=== PATIENT | male | born 1980 | race Caucasian/White ===

== ENCOUNTER 2020-11-18 17:44 | Emergency (ER) | payer BC ==
[~2020-11-18] VITALS: Ht 177.8 cm; Wt 85.0 kg
[2020-11-18] MEDS ORDERED: DOXYCYCLINE HY100 MG PO (22:44)
== END 2020-11-18 23:05 | disposition home or self-care (01) ==
LOC: ED 17:44
DX: L03.115 Cellulitis of right lower limb (principal); R00.0 Tachycardia, unspecified
CPT/HCPCS: 73630; 80053; 83605; 85025; 93971; 99284-25

== ENCOUNTER 2021-07-16 09:07 | Day surgery (SDC) | payer BC ==
[~2021-07-16] VITALS: Ht 177.8 cm; Wt 64.4 kg
[~2021-07-16 09:07] MED LIST: DOXYCYCLINE HY100 MG PO; LEVEMIR FL100 UNIT/2 SQ; METFORMIN HCL750 MG PO; ZOLOFT50 MG PO
--- NOTE | 2021-07-16 10:15 | NUR ---
0931 BLOOD GLUCOSE 111. NOT IN EMAR.
--- NOTE | 2021-07-16 11:14 | NUR ---
07/16/21 1114 Cintia Sanchez 1108-PATIENT ARRIVED TO PACU ON 3L NC PLACED ON 2L RR EVEN. PATIENT LAYING LEFT LATERAL REACTIVE TO VERBAL STIMULI EYES CLOSED DENIES PAIN OR NAUSEA. ABDOMEN SOFT PASSING GAS. GLUCOSE CHECKED 133
--- NOTE | 2021-07-28 13:20 | OR ---
[facility] [address] [place], [place] [address] Signed DATE OF OPERATION: 07/16/2021 SURGEON: Merlin Gonsalves MD PREOPERATIVE DIAGNOSES: 1. Hemorrhoids. 2. Intermittent rectal bleeding and burning. 3. Recent Clostridium difficile colitis. POSTOPERATIVE DIAGNOSIS: Uklgjxn-fo-hrttazwi internal hemorrhoids with associated skin tags. PROCEDURE: Colonoscopy without biopsy. ESTIMATED BLOOD LOSS: None. INDICATIONS: Lisha is a 41-year-old gentleman, who has diabetes and peripheral neuropathy. He developed an infection in the right foot. 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 He developed C difficile colitis with diarrhea, this aggravated his hemorrhoids. He was treated for the C diff colitis and now the diarrhea is resolved. He said it is much improved. He said he still sees a little bit intermittent bleeding, but today he told me it is much better. He has been using hydrocortisone cream. He was complaining mainly about the burning around his anal skin from the contact dermatitis. Again, he said the hydrocortisone cream has helped wonderfully. In the office, I gave Lisha a pamphlet on colonoscopy. He understands there is risk including, but not limited to gas bloating, crampy abdominal pain, bleeding, perforation requiring surgery, and missed diagnosis. We also reviewed the need for IV conscious sedation. He had expressed understanding and wished to proceed. DESCRIPTION OF PROCEDURE: Lisha was taken into our endoscopy suite and placed in the left lateral decubitus position. He was given 6 mg of Versed and 100 mcg of fentanyl to cover the case. A digital rectal exam was performed. He has very healthy perianal hygiene. No evidence of any pruritus ani. No evidence of any fissures. No fistula tract. He had good sphincter tone. Prostate was unremarkable. There were no masses. The adult colonoscope was introduced and advanced all around to the cecum under direct visualization of camera without difficulty. His prep was quite good. We could easily Electronically Signed By: MERLIN GONSALVES MD 07/17/21 0824 Electronically Signed By: MERLIN GONSALVES MD 07/29/21 0617 PATIENT NAME: LISHA CORONEL OPERATIVE REPORT DATE OF : 84 REPORT #: [id number] PHYSICIAN: MERLIN GONSALVES MD PCP: SAHIL NAVA MD REPORT IS CONFIDENTIAL AND NOT TO BE RELEASED WITHOUT AUTHORIZATION [facility] [address] [place], [place] [address] Signed see the appendiceal orifice and the ileocecal valve. The scope was then slowly withdrawn. There is no pathology throughout the entire colon or rectum. Upon retroflexion of scope, we can see he has [id number]-[id number] sized internal hemorrhoids associated with skin tags. After this, the gas was suctioned out and colonoscope removed. Lisha tolerated the procedure quite well. RECOMMENDATIONS: Lisha can return at age 52 for routine screening colonoscopy. He is welcome to follow up with his primary care provider with ongoing conservative measures for his hemorrhoids. MD JENNIFER Doran/EVELINL /[id number] cc: Patient Chart MD Merlin Issa MD Copies: SAHIL NAVA MD, ANDREW L MD ~ Electronically Signed By: MERLIN GONSALVES MD 07/17/21 0824 Electronically Signed By: MERLIN GONSALVES MD 07/29/21 0617 PATIENT NAME: LISHA CORONEL OPERATIVE REPORT DATE OF : 84 REPORT #: [id number] PHYSICIAN: MERLIN GONSALVES MD PCP: SAHIL NAVA MD REPORT IS CONFIDENTIAL AND NOT TO BE RELEASED WITHOUT AUTHORIZATION
== END 2021-07-16 12:00 | disposition home or self-care (01) ==
LOC: OPS 09:07 → DS 09:12 → OPS 10:30 → DS 10:30 → OPS 12:00
PROVIDERS: ATTEND Colon & Rectal Surgery
PROC: 0DJD8ZZ Inspection of Lower Intestinal Tract, Via Natural or Artificial Opening Endoscopic (ICD-10-PCS; principal; 2021-07-16 10:30)
DX: K64.0 First degree hemorrhoids (principal); K64.4 Residual hemorrhoidal skin tags; K62.5 Hemorrhage of anus and rectum; E11.9 Type 2 diabetes mellitus without complications; Z89.611 Acquired absence of right leg above knee; Z79.4 Long term (current) use of insulin; Z79.84 Long term (current) use of oral hypoglycemic drugs; E11.42 Type 2 diabetes mellitus with diabetic polyneuropathy
CPT/HCPCS: 99153; G0500; J2250; J3010; J7121

== ENCOUNTER 2024-11-24 11:50 | Emergency (ER) | payer MEDICARE, OTHER ==
[~2024-11-24] VITALS: Ht 177.8 cm; Wt 78.0 kg
[2024-11-24] MEDS ORDERED: LISINOPRIL20 MG PO (14:15)
[2024-11-24 14:16] LABS: BASOPHILS 0.7 % (0.2-1.2); EOSINOPHILS 1.9 % (0.8-7.0); LYMPHOCYTES 17.7 % (21.8-53.1); MCH 28.4 PG (25.7-32.2); MCHC 34.1 g/dL (32.3-36.5); MCV 83.3 fL (79.0-92.2); MONOCYTES 8.6 % (5.3-12.2); NEUTROPHILS 70.6 % (34.0-67.9); RBC 4.44 M/uL (4.63-6.08)
[2024-11-24 14:34] LABS: ALT (SGPT) 26.0 U/L (14-59); AST (SGOT) 16.0 U/L (15-37); GLOMERULAR FILTRATION RATE,EST 90.0 mL/min (>60); PROTEIN, TOTAL 6.9 g/dL (6.4-8.2); UREA NITROGEN 15.0 mg/dL (7-18)
[2024-11-24 15:30] LABS: ERYTHROCYTE SEDIMENTATION RATE 33
[2024-11-24] MEDS ORDERED: AMOX TR-K CLV1 EAC1 PO (15:45)
[2024-11-24] MEDS ORDERED: DOXYCYCLINE HY100 MG PO (15:45)
[2024-11-24 16:07] VITALS: BP 141/112
== END 2024-11-24 16:08 | disposition home or self-care (01) ==
LOC: ED 11:50
PROVIDERS: Emergency Medicine
DX: S92.415A Nondisplaced fracture of proximal phalanx of left great toe, initial encounter for closed fracture (principal); X58.XXXA Exposure to other specified factors, initial encounter; L03.032 Cellulitis of left toe; E11.9 Type 2 diabetes mellitus without complications; I10 Essential (primary) hypertension; F32.A Depression, unspecified; Z89.611 Acquired absence of right leg above knee; Z79.84 Long term (current) use of oral hypoglycemic drugs; Z79.4 Long term (current) use of insulin; Z79.899 Other long term (current) drug therapy
CPT/HCPCS: 36415; 73630; 80053; 82800; 83036; 85025; 85651; 86140; 99283